=== PATIENT | male | born 1995 | race Caucasian/White ===

== ENCOUNTER 2021-09-21 11:16 | Emergency (ER) | payer OTHER ==
[2021-09-21] MEDS ORDERED: FAMOTIDINE 20 MG TAB PO ONE (11:33)
[2021-09-21] MEDS ORDERED: hydrOXYzine HCL 25 MG TAB PO ONE (11:33)
[2021-09-21] MEDS ORDERED: predniSONE 20 MG TAB PO ONE (11:33)
[2021-09-21 11:40] VITALS: BP 114/48
== END 2021-09-21 16:33 | disposition left against medical advice (07) ==
LOC: ED 11:16
DX: T78.40XA Allergy, unspecified, initial encounter (principal); Z53.21 Procedure and treatment not carried out due to patient leaving prior to being seen by health care provider; X58.XXXA Exposure to other specified factors, initial encounter
CPT/HCPCS: Q0177 ×2